=== PATIENT | female | born 1955 | race Caucasian/White ===

== ENCOUNTER 2018-05-07 03:51 | Observation (INO) | payer BC ==
[2018-05-07 04:36] LABS: ADD MAN DIFF? NO
[2018-05-07] MEDS: ONDANSETRON 4 MG INJ IV (04:36)
[2018-05-07 04:39] LABS: BASOPHIL # 0.1 10^3/ul (0.0-0.1); BASOPHILS % 0.7 % (0.0-2.0); EOSINOPHILS # 0.3 10^3/ul (0.0-0.5); EOSINOPHILS % 3.6 % (0.0-7.0); HEMATOCRIT 39.8 % (37.0-47.0); HEMOGLOBIN 13.2 g/dl (12.0-16.0); LYMPHOCYTES # 3.5 10^3/ul (0.8-2.9); LYMPHOCYTES % 48.5 % (15.0-51.0); MEAN CORPUSCULAR HEMOGLOBIN 29.3 pg (29.0-33.0); MEAN CORPUSCULAR HGB CONC 33.2 g/dl (32.0-37.0); MEAN CORPUSCULAR VOLUME 88.2 fl (82.0-101.0); MEAN PLATELET VOLUME 11.4 fl (7.4-10.4); MONOCYTE # 0.7 10^3/ul (0.3-0.9); MONOCYTES % 9.2 % (0.0-11.0); NEUTROPHIL # 2.7 10^3/ul (1.6-7.5); NEUTROPHILS % 37.9 % (39.0-77.0); PLATELET COUNT 250 10^3/UL (140-415); RED BLOOD COUNT 4.51 10^6/ul (4.20-5.40); RED CELL DISTRIBUTION WIDTH 13.5 % (11.5-14.5)
[2018-05-07 04:39] LABS: WHITE BLOOD COUNT 7.2 10^3/ul (4.8-10.8)
[2018-05-07 04:57] LABS: INR 0.94; PROTIME 12.7 Sec (11.9-14.9)
[2018-05-07 04:58] LABS: ALANINE AMINOTRANSFERASE 39 IU/L (13-69); ALBUMIN 3.5 g/dl (3.3-4.9); ALBUMIN/GLOBULIN RATIO 1.02; ALKALINE PHOSPHATASE 96 IU/L (42-121); ANION GAP 7 (5-13); ASPARTATE AMINO TRANSFERASE 34 IU/L (15-46); BILIRUBIN,INDIRECT 0.4 mg/dl (0-1.1); BILIRUBIN,TOTAL 0.4 mg/dl (0.2-1.3); BLOOD UREA NITROGEN 17 mg/dl (7-20); CALCIUM 9.3 mg/dl (8.4-10.2); CARBON DIOXIDE 25 mmol/L (21-31); CHLORIDE 107 mmol/L (97-110); CREATININE 1.01 mg/dl (0.44-1.00); GLUCOSE 117 mg/dl (70-220); PARTIAL THROMBOPLASTIN TIME 27.5 Sec (23.0-35.0); POTASSIUM 3.8 mmol/L (3.5-5.1); SODIUM 139 mmol/L (135-144); TOTAL PROTEIN 6.9 g/dl (6.1-8.1)
[2018-05-07 05:09] LABS: TROPONIN-I < 0.012 ng/ml (0.000-0.120)
[2018-05-07] MEDS: MECLIZINE 12.5 MG TAB PO (05:41)
[2018-05-07] MEDS ORDERED: morphine 2 MG INJ IV (06:30)
[2018-05-07] MEDS ORDERED: NACL 0.9% 3 ML SYG IV (06:30)
[2018-05-07] MEDS ORDERED: ONDANSETRON 4 MG INJ IV (06:30)
[2018-05-07] MEDS ORDERED: NITROGLYCERIN (SL) 0.4 MG TAB SL (06:30)
[2018-05-07] MEDS ORDERED: BISACODYL (EC) 5 MG TAB PO (06:30)
[2018-05-07] MEDS ORDERED: DOCUSATE SODIUM 100 MG CAP PO (06:30)
[2018-05-07 07:46] LABS: D-DIMER 904.73 ng/ml (<460)
[2018-05-07] MEDS: SOD CHLORIDE 0.9% 100 ML (08:51)
[2018-05-07] MEDS: IOHEXOL 100 ML (08:52)
[2018-05-07 11:15] LABS: CREATINE KINASE 67 IU/L (23-200)
[2018-05-07 11:26] LABS: CK INDEX 0.7; CK-MB 0.46 ng/ml (0.0-2.4); TROPONIN-I < 0.012 ng/ml (0.000-0.120)
[2018-05-07] MEDS: REGADENOSON 0.4 MG/5 ML SYG (16:05)
[2018-05-07 17:29] LABS: CREATINE KINASE 69 IU/L (23-200)
[2018-05-07 17:43] LABS: CK INDEX 0.5; CK-MB 0.37 ng/ml (0.0-2.4); TROPONIN-I < 0.012 ng/ml (0.000-0.120)
[2018-05-07 19:15] LABS: ADD UMIC NO; UR ASCORBIC ACID NEGATIVE (NEGATIVE); UR BILIRUBIN (Dip) NEGATIVE (NEGATIVE); UR BLOOD (Dip) NEGATIVE (NEGATIVE); UR CLARITY CLEAR (CLEAR); UR COLOR STRAW (YELLOW); UR GLUCOSE (Dip) NEGATIVE (NEGATIVE); UR KETONES (Dip) NEGATIVE (NEGATIVE); UR LEUKOCYTE ESTERASE (Dip) NEGATIVE Leu/ul (NEGATIVE); UR NITRITE (Dip) NEGATIVE (NEGATIVE); UR TOTAL PROTEIN (Dip) NEGATIVE (NEGATIVE); UR UROBILINOGEN (Dip) NEGATIVE (NEGATIVE)
[2018-05-07] MEDS: SOD CHLORIDE 0.9% 1,000 ML IV (20:19)
[2018-05-08] MEDS: SOD CHLORIDE 0.9% 1,000 ML IV ×4 (02:50→23:31)
[2018-05-08 05:40] LABS: ADD MAN DIFF? NO
[2018-05-08 05:50] LABS: BASOPHILS % 0.7 % (0.0-2.0); EOSINOPHILS # 0.2 10^3/ul (0.0-0.5); EOSINOPHILS % 3.5 % (0.0-7.0); HEMATOCRIT 38.4 % (37.0-47.0); HEMOGLOBIN 12.7 g/dl (12.0-16.0); LYMPHOCYTES # 2.7 10^3/ul (0.8-2.9); LYMPHOCYTES % 45.9 % (15.0-51.0); MEAN CORPUSCULAR HEMOGLOBIN 29.7 pg (29.0-33.0); MEAN CORPUSCULAR HGB CONC 33.1 g/dl (32.0-37.0); MEAN CORPUSCULAR VOLUME 89.7 fl (82.0-101.0); MEAN PLATELET VOLUME 10.8 fl (7.4-10.4); MONOCYTE # 0.5 10^3/ul (0.3-0.9); MONOCYTES % 8.1 % (0.0-11.0); NEUTROPHIL # 2.5 10^3/ul (1.6-7.5); NEUTROPHILS % 41.5 % (39.0-77.0); PLATELET COUNT 216 10^3/UL (140-415); RED BLOOD COUNT 4.28 10^6/ul (4.20-5.40); RED CELL DISTRIBUTION WIDTH 13.4 % (11.5-14.5)
[2018-05-08 06:18] LABS: ALANINE AMINOTRANSFERASE 23 IU/L (13-69); ALBUMIN 3.4 g/dl (3.3-4.9); ALBUMIN/GLOBULIN RATIO 1.17; ALKALINE PHOSPHATASE 79 IU/L (42-121); ANION GAP 7 (5-13); ASPARTATE AMINO TRANSFERASE 27 IU/L (15-46); BILIRUBIN,INDIRECT 0.3 mg/dl (0-1.1); BILIRUBIN,TOTAL 0.3 mg/dl (0.2-1.3); BLOOD UREA NITROGEN 12 mg/dl (7-20); CALCIUM 8.7 mg/dl (8.4-10.2); CARBON DIOXIDE 23 mmol/L (21-31); CHLORIDE 113 mmol/L (97-110); CREATININE 0.89 mg/dl (0.44-1.00); GLUCOSE 107 mg/dl (70-220); POTASSIUM 3.6 mmol/L (3.5-5.1); SODIUM 143 mmol/L (135-144); TOTAL PROTEIN 6.3 g/dl (6.1-8.1)
[2018-05-08 08:41] LABS: HEMOGLOBIN A1C 5.2 % (0-5.9)
[2018-05-08] MEDS: INFLUENZA VIRUS VACCINE 0.5 ML (DISPENSING) IM* (09:14)
[2018-05-09] MEDS: MECLIZINE 25 MG TAB PO (12:35)
== END 2018-05-09 17:20 | disposition home or self-care (01) ==
LOC: E/R 03:51 → 6WM 05:40
DX: R07.89 Other chest pain (principal); R42 Dizziness and giddiness; H40.9 Unspecified glaucoma; E66.9 Obesity, unspecified; Z68.34 Body mass index [BMI] 34.0-34.9, adult; Z23 Encounter for immunization
CPT/HCPCS: 36415; 70450; 70551; 70552; 71045; 71275; 78452; 80053; 81003; 82550; 82553; 83036; 83735; 84443; 84484; 85025; 85378; 85610; 85730; 90686; 93005; 93017; 93306; 93880; 93970; 96374; 97116; 97162; 97166; 97530; 99217; 99285-25; G0378